=== PATIENT | male | born 1930 | race Two or more races ===

== ENCOUNTER 2017-04-27 17:52 | Inpatient (IN) | payer MEDICARE, MEDICAID ==
[~2017-04-27] VITALS: Ht 160 cm; Wt 54.0 kg
[2017-04-27 18:30] VITALS: BP 122/61
[2017-04-27] MEDS ORDERED: LEVETIRACETAM500 MG ORAL (19:25)
[2017-04-27] MEDS ORDERED: DIOVAN160 MG ORAL (19:25)
[2017-04-27 19:27] LABS: MEAN CORPUSCULAR HEMOGLOBIN 29.6 PG (27.0-31.0); MEAN CORPUSCULAR HGB CONC 31.5 G/DL (32.0-36.0); MEAN CORPUSCULAR VOLUME 94 FL (80-99); MEAN PLATELET VOLUME 8.3 FL (6.5-10.1); PLATELET COUNT 188 K/UL (150-450); RED BLOOD COUNT 4.44 M/UL (4.70-6.10); RED CELL DISTRIBUTION WIDTH 14.3 % (11.6-14.8)
--- NOTE | 2017-04-27 19:28 | Emergency Room Report ---
History of Present Illness General Chief Complaint: Seizure Source: Family Member Present Illness HPI 86yom with known seizures on keppra BIBEMS with witnessed tonic clonic seizure Given IM versed and cessation of seizure Was in chair, no trauma Last seizure one month prior HPI otherwise limited as patient post-ictal and accompanied health care worker is not very knowledgeable about patient Allergies: Coded Allergies: No Known Allergies (Unverified , 04/27/17) Patient History Past Medical History: HTN, seizures Past Surgical History: unable to obtain Pertinent Family History: unable to obtain Social History: Denies: smoking, alcohol use, drug use Immunizations: UTD Reviewed Nursing Documentation: PMH: Agreed, PSxH: Agreed Nursing Documentation-PMH Hx Hypertension: Yes Hx Diabetes: Yes Review of Systems All Other Systems: negative except mentioned in HPI Physical Exam Vital Signs Date Time Temp Pulse Resp B/P (MAP) Pulse Ox O2 Delivery O2 Flow Rate FiO2 04/27/17 17:58 99.1 120 16 128/54 98 Nasal Cannula 3.0 Sp02 EP Interpretation: reviewed, normal General Appearance: normal inspection, well appearing, no apparent distress, Postictal Head: normocephalic, atraumatic Eyes: bilateral eye PERRL, bilateral eye EOMI ENT: normal ENT inspection, hearing grossly normal, normal voice Neck: normal inspection, full range of motion, supple, no bony tend Respiratory: normal inspection, lungs clear, normal breath sounds, no respiratory distress, no retraction, no wheezing Cardiovascular #1: regular rate, rhythm, no edema Gastrointestinal: normal inspection, normal bowel sounds, non tender, soft, no guarding, no hernia Genitourinary: no CVA tenderness Musculoskeletal: normal inspection, back normal, normal range of motion, Cecil' s Sign negative Neurologic: normal inspection, alert, responsive, town justice III-XII nml as tested, motor strength/tone normal, speech normal Psychiatric: normal inspection, judgement/insight normal, mood/affect normal Skin: normal inspection, normal color, no rash Medical Decision Making Medicare Attestation I Abiodun Curtis MD hereby attest that the medical record entry for date of service, 04/27/17 accurately reflects signatures/notations that I made in my capacity as MD when I treated/diagnosed the above listed Medicare beneficiary. I attest that this information is true, accurate and complete to the best of my knowledge. I understand that any falsification, omission, or concealment of material fact may subject me to administrative, civil, or criminal liability. This patient warrants hospital admission for extreme of age and has a condition that cannot be treated as outpatient. Diagnostic Impression: Primary Impression: Seizure disorder ER Course CT head normal VSS. Afebrile ECG with qwaves Labs: Was loaded with Keppra IV in ED No additional witnessed seizures Endorsed to Dr Vang tele admit 728pm EKG Diagnostic Results Rate: tachycardiac Rhythm: NSR ST Segments: other - Q waves in inferior leads ASA given to the pt in ED: No Rhythm Strip Diag. Results EP Interpretation: yes Rate: 105 Rhythm: NSR, no PVC's, no ectopy Last Vital Signs Date Time Temp Pulse Resp B/P (MAP) Pulse Ox O2 Delivery O2 Flow Rate FiO2 04/27/17 17:58 99.1 120 16 128/54 98 Nasal Cannula 3.0 Status: improved Disposition: ADMITTED INPATIENT Condition: Serious Referrals: NOT CHOSEN IPA/,REFERRING (PCP) ABIODUN CURTIS M.D. Apr 27, 2017 19:28
[2017-04-27 19:36] LABS: TROPONIN I < 0.30 ng/mL (<=0.30)
[2017-04-27 19:38] VITALS: BP 132/74
[2017-04-27 19:43] LABS: ACETAMINOPHEN < 10 ug/mL (10-30); ALANINE AMINOTRANSFERASE 16 U/L (3-41); ALBUMIN/GLOBULIN RATIO 1.1 (1.0-2.7); ALCOHOL < 10 mg/dL; ANION GAP 20 (5-15); ASPARTATE AMINO TRANSFERASE 40 U/L (5-40); CALCIUM 9.4 mg/dL (8.6-10.2); CARBAMAZEPINE (TEGRETOL) < 2.0 ug/mL (4.0-12.0); CARBON DIOXIDE 20 mEQ/L (20-30); CHLORIDE 98 mEQ/L (98-107); CREATININE 2.1 mg/dL (0.7-1.2); HEMOLYSIS 5; POTASSIUM 3.9 mEQ/L (3.4-4.9); SODIUM 138 mEQ/L (135-145)
[2017-04-27] MEDS ORDERED: levETIRAcetam 1,000mg/NS100ml 100 ML IVPB ONE (20:00)
[2017-04-27 20:34] LABS: BAND NEUTROPHILS % (MANUAL) 1 % (0-8); LYMPHOCYTES % (MANUAL) 8 % (20-45); NEUTROPHILS % (MANUAL) 85 % (45-75); PLATELET MORPHOLOGY NORMAL; TOTAL CELLS COUNTED 100
[2017-04-27 20:35] LABS: BASOPHILS % (MANUAL) 0 % (0-2); EOSINOPHILS % (MANUAL) 0 % (0-3); PLATELET ESTIMATE ADEQUATE
[2017-04-27] MEDS ORDERED: Morphine Sulfate 2mg/ml Inj IVP PRN (21:15)
[2017-04-27] MEDS ORDERED: LORazepam Inj 2mg/ml 1ml IV PRN (21:15)
[2017-04-27] MEDS ORDERED: Miralax 17gm pkt ORAL PRN (21:15)
[2017-04-27] MEDS ORDERED: Zolpidem 5mg tab ORAL PRN (21:15)
[2017-04-27] MEDS ORDERED: Mylanta II UD 30ml ORAL PRN (21:15)
[2017-04-27] MEDS: LORazepam Inj 2mg/ml 1ml IV ONE ×2 (21:22→21:30)
[2017-04-27 22:00] VITALS: BP 138/78
[2017-04-28] MEDS ORDERED: Haloperidol 5mg/ml Inj IM PRN (00:45)
[2017-04-28 04:00] VITALS: BP 127/101
[2017-04-28 07:00] LABS: BASOPHILS % (AUTO) 0.9 % (0.0-2.0); EOSINOPHILS % (AUTO) 2.1 % (0.0-3.0); LYMPHOCYTES % (AUTO) 16.1 % (20.0-45.0); MEAN CORPUSCULAR HEMOGLOBIN 29.7 PG (27.0-31.0); MEAN CORPUSCULAR HGB CONC 31.4 G/DL (32.0-36.0); MEAN CORPUSCULAR VOLUME 95 FL (80-99); MEAN PLATELET VOLUME 8.9 FL (6.5-10.1); MONOCYTES % (AUTO) 8.6 % (1.0-10.0); NEUTROPHILS % (AUTO) 72.3 % (45.0-75.0); PLATELET COUNT 172 K/UL (150-450); RED BLOOD COUNT 3.95 M/UL (4.70-6.10); RED CELL DISTRIBUTION WIDTH 14.3 % (11.6-14.8); WHITE BLOOD COUNT 9.4 K/UL (4.8-10.8)
[2017-04-28 07:14] LABS: ALANINE AMINOTRANSFERASE 15 U/L (3-41); ALBUMIN/GLOBULIN RATIO 1.2 (1.0-2.7); ANION GAP 12 (5-15); ASPARTATE AMINO TRANSFERASE 38 U/L (5-40); CALCIUM 9.1 mg/dL (8.6-10.2); CARBON DIOXIDE 27 mEQ/L (20-30); CHLORIDE 101 mEQ/L (98-107); CREATININE 1.9 mg/dL (0.7-1.2); HEMOLYSIS 4; POTASSIUM 3.7 mEQ/L (3.4-4.9); SODIUM 140 mEQ/L (135-145); TOTAL PROTEIN 6.5 g/dL (6.6-8.7)
[2017-04-28 08:00] VITALS: BP 110/57
[2017-04-28] MEDS: Heparin 5000 units/ml inj SUBQ SCH ×2 (09:35→21:16)
--- NOTE | 2017-04-28 09:48 | Diagnostic Imaging Report ---
Indication: Seizure and headache Technique: Contiguous 5 mm thick transaxial imaging of the head obtained in a Siemens Sensation [address] scanner. Soft tissue and bone windows generated. Total Dose length Product (DLP): [address] Dose Index Volume (CTDIvol): 70.38, 0.15 mGy Comparison: none Findings: There is moderate prominence of the ventricles, basal cisterns, and cerebral sulci consistent with atrophy. Moderate, nonspecific, white matter hypoattenuation is noted throughout the brain consistent with chronic small vessel disease. There is no midline shift, edema, acute hemorrhage, mass effect, or abnormal extra-axial fluid collections. Bones and extra osseous soft tissues are unremarkable. Impression: No acute intracranial bleed, mass effect or edema. Moderate atrophy of the brain. Evidence of chronic small vessel disease involving white matter tracts. The CT scanner at [facility] is accredited by the [employer] and the scans are performed using dose optimization techniques as appropriate to a performed exam including Automatic Exposure control.
[2017-04-28 12:00] VITALS: BP 117/52
--- NOTE | 2017-04-28 12:14 | Consultation ---
History of Present Illness General Chief Complaint: Seizure Present Illness HPI 86yom with known seizures on keppra BIBEMS with witnessed tonic clonic seizure. The pts family were in room.the pt has a sitter. the pt was aaox3, however he has cognitive impairment. the pt was agitated yesterday during my evaluation he was calm. His daughter in law is his care team assistant. the pt lacks capacity to leave ama. the pts son stated that he has desire to drive and they have to hide keys from him. spoke to his nurse, the pt may not drive in future. Allergies: Coded Allergies: No Known Allergies (Unverified , 04/27/17) Medication History Scheduled Valsartan (Diovan), 320 MG ORAL DAILY, (Reported) Miscellaneous Medications Levetiracetam* (Levetiracetam*), 250 MG ORAL, (Reported) Patient History Limited by: language barrier, medical condition History Provided By: Patient, Family Member, Medical Record, Caregiver, PMD Healthcare decision maker Konstantin Gray Resuscitation status Full Code Advanced Directive on File No Past Medical/Surgical History Past Medical/Surgical History: (1) Seizure disorder Review of Systems Constitutional: Reports: malaise, weakness Psychiatric: Reports: prior hx, anxiety, depressed feelings, emotional problems Physical Exam General Appearance: no apparent distress, alert Neurologic: alert, oriented x 3, responsive, normal mood/affect Last 24 Hour Vital Signs Date Time Temp Pulse Resp B/P (MAP) Pulse Ox O2 Delivery O2 Flow Rate FiO2 04/28/17 09:00 63 04/28/17 08:00 97.7 69 17 110/57 100 Room Air 04/28/17 04:00 97.7 93 23 127/101 91 Room Air 04/28/17 04:00 68 04/28/17 00:00 92 04/27/17 22:15 99.1 112 16 132/74 98 Room Air 3.0 04/27/17 22:00 99.1 102 22 138/78 96 Room Air 04/27/17 19:39 112 16 Room Air 04/27/17 19:38 99.1 112 22 132/74 98 Nasal Cannula 3.0 04/27/17 18:34 78 25 04/27/17 18:30 98.8 78 25 122/61 94 Room Air 04/27/17 17:58 99.1 120 16 128/54 98 Nasal Cannula 3.0 Laboratory Tests Test 04/27/17 18:49 04/28/17 06:10 White Blood Count 13.0 K/UL (4.8-10.8) H 9.4 K/UL (4.8-10.8) Red Blood Count 4.44 M/UL (4.70-6.10) L 3.95 M/UL (4.70-6.10) L Hemoglobin 13.1 G/DL (14.2-18.0) L 11.7 G/DL (14.2-18.0) L Hematocrit 41.7 % (42.0-52.0) L 37.4 % (42.0-52.0) L Mean Corpuscular Volume 94 FL (80-99) 95 FL (80-99) Mean Corpuscular Hemoglobin 29.6 PG (27.0-31.0) 29.7 PG (27.0-31.0) Mean Corpuscular Hemoglobin Concent 31.5 G/DL (32.0-36.0) L 31.4 G/DL (32.0-36.0) L Red Cell Distribution Width 14.3 % (11.6-14.8) 14.3 % (11.6-14.8) Platelet Count 188 K/UL (150-450) 172 K/UL (150-450) Mean Platelet Volume 8.3 FL (6.5-10.1) 8.9 FL (6.5-10.1) Neutrophils (%) (Auto) % (45.0-75.0) 72.3 % (45.0-75.0) Lymphocytes (%) (Auto) % (20.0-45.0) 16.1 % (20.0-45.0) L Monocytes (%) (Auto) % (1.0-10.0) 8.6 % (1.0-10.0) Eosinophils (%) (Auto) % (0.0-3.0) 2.1 % (0.0-3.0) Basophils (%) (Auto) % (0.0-2.0) 0.9 % (0.0-2.0) Differential Total Cells Counted 100 Neutrophils % (Manual) 85 % (45-75) H Lymphocytes % (Manual) 8 % (20-45) L Monocytes % (Manual) 6 % (1-10) Eosinophils % (Manual) 0 % (0-3) Basophils % (Manual) 0 % (0-2) Band Neutrophils 1 % (0-8) Platelet Estimate Adequate Platelet Morphology Normal Red Blood Cell Morphology Normal Sodium Level 138 mEQ/L (135-145) 140 mEQ/L (135-145) Potassium Level 3.9 mEQ/L (3.4-4.9) 3.7 mEQ/L (3.4-4.9) Chloride Level 98 mEQ/L (98-107) 101 mEQ/L (98-107) Carbon Dioxide Level 20 mEQ/L (20-30) 27 mEQ/L (20-30) Anion Gap 20 (5-15) H 12 (5-15) Blood Urea Nitrogen 21 mg/dL (7-23) 19 mg/dL (7-23) Creatinine 2.1 mg/dL (0.7-1.2) H 1.9 mg/dL (0.7-1.2) H Estimat Glomerular Filtration Rate mL/min (>60) mL/min (>60) Glucose Level 145 mg/dL (74-106) H 98 mg/dL (74-106) Calcium Level 9.4 mg/dL (8.6-10.2) 9.1 mg/dL (8.6-10.2) Total Bilirubin 0.3 mg/dL (0.0-1.2) 0.6 mg/dL (0.0-1.2) Aspartate Amino Transf (AST/SGOT) 40 U/L (5-40) 38 U/L (5-40) Alanine Aminotransferase (ALT/SGPT) 16 U/L (3-41) 15 U/L (3-41) Alkaline Phosphatase 141 U/L (40-129) H 122 U/L (40-129) Total Creatine Kinase 40 U/L (38-174) Creatine Kinase MB 2.0 ng/mL (< 6.7) Creatine Kinase MB Relative Index 5.0 Troponin I < 0.30 ng/mL (<=0.30) Total Protein 7.0 g/dL (6.6-8.7) 6.5 g/dL (6.6-8.7) L Albumin 3.8 g/dL (3.5-5.2) 3.6 g/dL (3.5-5.2) Globulin 3.2 g/dL 2.9 g/dL Albumin/Globulin Ratio 1.1 (1.0-2.7) 1.2 (1.0-2.7) Salicylates Level < 1 mg/dL (10-30) L Acetaminophen Level < 10 ug/mL (10-30) L Phenytoin (Dilantin) Level < 0.8 ug/mL (10-20) L Carbamazepine (Tegretol) Level < 2.0 ug/mL (4.0-12.0) L Serum Alcohol < 10 mg/dL Height (Feet): 5 Height (Inches): 3.00 Weight (Pounds): 119 Medications Current Medications Medications (Trade) Dose Ordered Sig/Fransisco Route PRN Reason Start Time Stop Time Status Last Admin Dose Admin Acetaminophen (Tylenol) 650 mg Q4H PRN ORAL T>100.5 04/27/17 21:15 05/27/17 21:14 Al Hydroxide/Mg Hydroxide (Mylanta II) 30 ml Q6H PRN ORAL dyspepsia 04/27/17 21:15 05/27/17 21:14 Dextrose (Dextrose 50%) STAT PRN IV Hypoglycemia 04/27/17 21:15 05/27/17 21:14 Haloperidol Lactate (Haldol) 2 mg Q4H PRN IM Agitation 04/28/17 00:45 05/28/17 00:44 04/28/17 03:51 Heparin Sodium (Porcine) (Heparin 5000 units/ml) 5,000 units EVERY 12 HOURS SUBQ 04/28/17 09:00 05/28/17 08:59 04/28/17 09:35 Levetiracetam (Keppra) 250 mg Q12HR ORAL 04/28/17 09:00 05/28/17 08:59 04/28/17 09:32 Lorazepam (Ativan 2mg/ml 1ml) 2 mg Q1H PRN IV seizures 04/27/17 21:15 05/04/17 21:14 Morphine Sulfate (Morphine Sulfate) 1 mg Q4H PRN IVP PAIN 4-10 04/27/17 21:15 05/04/17 21:14 Ondansetron HCl (Zofran) 4 mg Q6H PRN IVP Nausea & Vomiting 04/27/17 21:15 05/27/17 21:14 Polyethylene Glycol (Miralax) 17 gm HSPRN PRN ORAL Constipation 04/27/17 21:15 05/27/17 21:14 Zolpidem Tartrate (Ambien) 5 mg HSPRN PRN ORAL Insomnia 04/27/17 21:15 05/04/17 21:14 Assessment/Plan Status: stable Assessment/Plan Cognitive impairment -pt may not drive, nurse to contact Gail Muse M.D. Apr 28, 2017 12:14
--- NOTE | 2017-04-28 15:25 | History and Physical ---
History of Present Illness General Date patient seen: Apr 27, 2017 Reason for Hospitalization: Seizure Present Illness HPI 86yom with pmhx of known seizures on keppra and HTN, brought in by paramedics with witnessed tonic clonic seizure. Paramedics gave IM versed and cessation of seizure He had another seizure one month ago. patient was post-ictal in Er and couldn 't give any more history. Allergies: Coded Allergies: No Known Allergies (Unverified , 04/27/17) Medication History Scheduled Valsartan (Diovan), 320 MG ORAL DAILY, (Reported) Miscellaneous Medications Levetiracetam* (Levetiracetam*), 250 MG ORAL, (Reported) Patient History Healthcare decision maker Konstantin Gray Resuscitation status Full Code Advanced Directive on File No Past Medical/Surgical History Past Medical/Surgical History: (1) Hypertension (2) Uncontrolled seizures Review of Systems All Other Systems: negative except mentioned in HPI Physical Exam General Appearance: WD/WN, no apparent distress Lines, tubes and drains: peripheral HEENT: normocephalic, atraumatic Neck: non-tender, normal alignment Respiratory/Chest: chest wall non-tender, lungs clear Breasts: no masses Cardiovascular/Chest: normal peripheral pulses Abdomen: normal bowel sounds Genitourinary/Rectal: normal genital exam Extremities: normal range of motion, non-tender Skin Exam: cyanotic Neurologic: no motor/sensory deficits Lymphatic: anterior cervical Last 24 Hour Vital Signs Date Time Temp Pulse Resp B/P (MAP) Pulse Ox O2 Delivery O2 Flow Rate FiO2 04/28/17 12:00 97.2 76 18 117/52 97 Room Air 04/28/17 12:00 76 04/28/17 09:00 63 04/28/17 08:00 97.7 69 17 110/57 100 Room Air 04/28/17 04:00 97.7 93 23 127/101 91 Room Air 04/28/17 04:00 68 04/28/17 00:00 92 04/27/17 22:15 99.1 112 16 132/74 98 Room Air 3.0 04/27/17 22:00 99.1 102 22 138/78 96 Room Air 04/27/17 19:39 112 16 Room Air 04/27/17 19:38 99.1 112 22 132/74 98 Nasal Cannula 3.0 04/27/17 18:34 78 25 04/27/17 18:30 98.8 78 25 122/61 94 Room Air 04/27/17 17:58 99.1 120 16 128/54 98 Nasal Cannula 3.0 Laboratory Tests Test 04/27/17 18:49 04/28/17 06:10 White Blood Count 13.0 K/UL (4.8-10.8) H 9.4 K/UL (4.8-10.8) Red Blood Count 4.44 M/UL (4.70-6.10) L 3.95 M/UL (4.70-6.10) L Hemoglobin 13.1 G/DL (14.2-18.0) L 11.7 G/DL (14.2-18.0) L Hematocrit 41.7 % (42.0-52.0) L 37.4 % (42.0-52.0) L Mean Corpuscular Volume 94 FL (80-99) 95 FL (80-99) Mean Corpuscular Hemoglobin 29.6 PG (27.0-31.0) 29.7 PG (27.0-31.0) Mean Corpuscular Hemoglobin Concent 31.5 G/DL (32.0-36.0) L 31.4 G/DL (32.0-36.0) L Red Cell Distribution Width 14.3 % (11.6-14.8) 14.3 % (11.6-14.8) Platelet Count 188 K/UL (150-450) 172 K/UL (150-450) Mean Platelet Volume 8.3 FL (6.5-10.1) 8.9 FL (6.5-10.1) Neutrophils (%) (Auto) % (45.0-75.0) 72.3 % (45.0-75.0) Lymphocytes (%) (Auto) % (20.0-45.0) 16.1 % (20.0-45.0) L Monocytes (%) (Auto) % (1.0-10.0) 8.6 % (1.0-10.0) Eosinophils (%) (Auto) % (0.0-3.0) 2.1 % (0.0-3.0) Basophils (%) (Auto) % (0.0-2.0) 0.9 % (0.0-2.0) Differential Total Cells Counted 100 Neutrophils % (Manual) 85 % (45-75) H Lymphocytes % (Manual) 8 % (20-45) L Monocytes % (Manual) 6 % (1-10) Eosinophils % (Manual) 0 % (0-3) Basophils % (Manual) 0 % (0-2) Band Neutrophils 1 % (0-8) Platelet Estimate Adequate Platelet Morphology Normal Red Blood Cell Morphology Normal Sodium Level 138 mEQ/L (135-145) 140 mEQ/L (135-145) Potassium Level 3.9 mEQ/L (3.4-4.9) 3.7 mEQ/L (3.4-4.9) Chloride Level 98 mEQ/L (98-107) 101 mEQ/L (98-107) Carbon Dioxide Level 20 mEQ/L (20-30) 27 mEQ/L (20-30) Anion Gap 20 (5-15) H 12 (5-15) Blood Urea Nitrogen 21 mg/dL (7-23) 19 mg/dL (7-23) Creatinine 2.1 mg/dL (0.7-1.2) H 1.9 mg/dL (0.7-1.2) H Estimat Glomerular Filtration Rate mL/min (>60) mL/min (>60) Glucose Level 145 mg/dL (74-106) H 98 mg/dL (74-106) Calcium Level 9.4 mg/dL (8.6-10.2) 9.1 mg/dL (8.6-10.2) Total Bilirubin 0.3 mg/dL (0.0-1.2) 0.6 mg/dL (0.0-1.2) Aspartate Amino Transf (AST/SGOT) 40 U/L (5-40) 38 U/L (5-40) Alanine Aminotransferase (ALT/SGPT) 16 U/L (3-41) 15 U/L (3-41) Alkaline Phosphatase 141 U/L (40-129) H 122 U/L (40-129) Total Creatine Kinase 40 U/L (38-174) Creatine Kinase MB 2.0 ng/mL (< 6.7) Creatine Kinase MB Relative Index 5.0 Troponin I < 0.30 ng/mL (<=0.30) Total Protein 7.0 g/dL (6.6-8.7) 6.5 g/dL (6.6-8.7) L Albumin 3.8 g/dL (3.5-5.2) 3.6 g/dL (3.5-5.2) Globulin 3.2 g/dL 2.9 g/dL Albumin/Globulin Ratio 1.1 (1.0-2.7) 1.2 (1.0-2.7) Salicylates Level < 1 mg/dL (10-30) L Acetaminophen Level < 10 ug/mL (10-30) L Phenytoin (Dilantin) Level < 0.8 ug/mL (10-20) L Carbamazepine (Tegretol) Level < 2.0 ug/mL (4.0-12.0) L Serum Alcohol < 10 mg/dL Height (Feet): 5 Height (Inches): 3.00 Weight (Pounds): 119 Medications Current Medications Medications (Trade) Dose Ordered Sig/Fransisco Route PRN Reason Start Time Stop Time Status Last Admin Dose Admin Acetaminophen (Tylenol) 650 mg Q4H PRN ORAL T>100.5 04/27/17 21:15 05/27/17 21:14 Al Hydroxide/Mg Hydroxide (Mylanta II) 30 ml Q6H PRN ORAL dyspepsia 04/27/17 21:15 05/27/17 21:14 Dextrose (Dextrose 50%) STAT PRN IV Hypoglycemia 04/27/17 21:15 05/27/17 21:14 Haloperidol Lactate (Haldol) 2 mg Q4H PRN IM Agitation 04/28/17 00:45 05/28/17 00:44 04/28/17 03:51 Heparin Sodium (Porcine) (Heparin 5000 units/ml) 5,000 units EVERY 12 HOURS SUBQ 04/28/17 09:00 05/28/17 08:59 04/28/17 09:35 Levetiracetam (Keppra) 250 mg Q12HR ORAL 04/28/17 09:00 05/28/17 08:59 04/28/17 09:32 Lorazepam (Ativan 2mg/ml 1ml) 2 mg Q1H PRN IV seizures 04/27/17 21:15 05/04/17 21:14 Morphine Sulfate (Morphine Sulfate) 1 mg Q4H PRN IVP PAIN 4-10 04/27/17 21:15 05/04/17 21:14 Ondansetron HCl (Zofran) 4 mg Q6H PRN IVP Nausea & Vomiting 04/27/17 21:15 05/27/17 21:14 Polyethylene Glycol (Miralax) 17 gm HSPRN PRN ORAL Constipation 04/27/17 21:15 05/27/17 21:14 Zolpidem Tartrate (Ambien) 5 mg HSPRN PRN ORAL Insomnia 04/27/17 21:15 05/04/17 21:14 Assessment/Plan Problem List: (1) Uncontrolled seizures ICD Codes: R56.9 - Unspecified convulsions SNOMED: 62207329 (2) Hypertension ICD Codes: I10 - Essential (primary) hypertension SNOMED: 59738410 Assessment/Plan telemetry monitoring neuro evaluation prn ativan for seizure seizure precaution monitor BP ALEC MICHAEL Apr 28, 2017 15:25
--- NOTE | 2017-04-28 15:32 | Pulmonology Progress Note ---
Assessment/Plan Problems: (1) Acute encephalopathy (2) Uncontrolled seizures (3) ATN (acute tubular necrosis) (4) Hypertension Assessment/Plan mental status improved bp controlled f/u renal function neuro evaluation pending Subjective ROS Limited/Unobtainable: No Constitutional: Reports: no symptoms HEENT: Repors: no symptoms Respiratory: Reports: no symptoms Allergies: Coded Allergies: No Known Allergies (Unverified , 04/27/17) Objective Last 24 Hour Vital Signs Date Time Temp Pulse Resp B/P (MAP) Pulse Ox O2 Delivery O2 Flow Rate FiO2 04/28/17 12:00 97.2 76 18 117/52 97 Room Air 04/28/17 12:00 76 04/28/17 09:00 63 04/28/17 08:00 97.7 69 17 110/57 100 Room Air 04/28/17 04:00 97.7 93 23 127/101 91 Room Air 04/28/17 04:00 68 04/28/17 00:00 92 04/27/17 22:15 99.1 112 16 132/74 98 Room Air 3.0 04/27/17 22:00 99.1 102 22 138/78 96 Room Air 04/27/17 19:39 112 16 Room Air 04/27/17 19:38 99.1 112 22 132/74 98 Nasal Cannula 3.0 04/27/17 18:34 78 25 04/27/17 18:30 98.8 78 25 122/61 94 Room Air 04/27/17 17:58 99.1 120 16 128/54 98 Nasal Cannula 3.0 General Appearance: WD/WN HEENT: normocephalic, atraumatic Respiratory/Chest: chest wall non-tender Cardiovascular: normal peripheral pulses, normal rate Abdomen: normal bowel sounds, soft, non tender Skin: no rash Laboratory Tests 04/27/17 18:49: White Blood Count 13.0H, Red Blood Count 4.44L, Hemoglobin 13.1L, Hematocrit 41.7L, Mean Corpuscular Volume 94, Mean Corpuscular Hemoglobin 29.6, Mean Corpuscular Hemoglobin Concent 31.5L, Red Cell Distribution Width 14.3, Platelet Count 188, Mean Platelet Volume 8.3, Neutrophils (%) (Auto) , Lymphocytes (%) (Auto) , Monocytes (%) (Auto) , Eosinophils (%) (Auto) , Basophils (%) (Auto) , Differential Total Cells Counted 100, Neutrophils % ( Manual) 85H, Lymphocytes % (Manual) 8L, Monocytes % (Manual) 6, Eosinophils % ( Manual) 0, Basophils % (Manual) 0, Band Neutrophils 1, Platelet Estimate Adequate, Platelet Morphology Normal, Red Blood Cell Morphology Normal, Sodium Level 138, Potassium Level 3.9, Chloride Level 98, Carbon Dioxide Level 20, Anion Gap 20H, Blood Urea Nitrogen 21, Creatinine 2.1H, Estimat Glomerular Filtration Rate , Glucose Level 145H, Calcium Level 9.4, Total Bilirubin 0.3, Aspartate Amino Transf (AST/SGOT) 40, Alanine Aminotransferase (ALT/SGPT) 16, Alkaline Phosphatase 141H, Total Creatine Kinase 40, Creatine Kinase MB 2.0, Creatine Kinase MB Relative Index 5.0, Troponin I < 0.30, Total Protein 7.0, Albumin 3.8, Globulin 3.2, Albumin/Globulin Ratio 1.1, Salicylates Level < 1L, Acetaminophen Level < 10L, Phenytoin (Dilantin) Level < 0.8L, Carbamazepine ( Tegretol) Level < 2.0L, Serum Alcohol < 10 04/28/17 06:10: White Blood Count 9.4, Red Blood Count 3.95L, Hemoglobin 11.7L, Hematocrit 37.4L , Mean Corpuscular Volume 95, Mean Corpuscular Hemoglobin 29.7, Mean Corpuscular Hemoglobin Concent 31.4L, Red Cell Distribution Width 14.3, Platelet Count 172, Mean Platelet Volume 8.9, Neutrophils (%) (Auto) 72.3, Lymphocytes (%) (Auto) 16.1L, Monocytes (%) (Auto) 8.6, Eosinophils (%) (Auto) 2.1, Basophils (%) (Auto) 0.9, Sodium Level 140, Potassium Level 3.7, Chloride Level 101, Carbon Dioxide Level 27, Anion Gap 12, Blood Urea Nitrogen 19, Creatinine 1.9H, Estimat Glomerular Filtration Rate , Glucose Level 98, Calcium Level 9.1, Total Bilirubin 0.6, Aspartate Amino Transf (AST/SGOT) 38, Alanine Aminotransferase (ALT/SGPT) 15, Alkaline Phosphatase 122, Total Protein 6.5L, Albumin 3.6, Globulin 2.9, Albumin/Globulin Ratio 1.2 Current Medications Medications (Trade) Dose Ordered Sig/Fransisco Route PRN Reason Start Time Stop Time Status Last Admin Dose Admin Acetaminophen (Tylenol) 650 mg Q4H PRN ORAL T>100.5 04/27/17 21:15 05/27/17 21:14 Al Hydroxide/Mg Hydroxide (Mylanta II) 30 ml Q6H PRN ORAL dyspepsia 04/27/17 21:15 05/27/17 21:14 Dextrose (Dextrose 50%) STAT PRN IV Hypoglycemia 04/27/17 21:15 05/27/17 21:14 Haloperidol Lactate (Haldol) 2 mg Q4H PRN IM Agitation 04/28/17 00:45 05/28/17 00:44 04/28/17 03:51 Heparin Sodium (Porcine) (Heparin 5000 units/ml) 5,000 units EVERY 12 HOURS SUBQ 04/28/17 09:00 05/28/17 08:59 04/28/17 09:35 Levetiracetam (Keppra) 250 mg Q12HR ORAL 04/28/17 09:00 05/28/17 08:59 04/28/17 09:32 Lorazepam (Ativan 2mg/ml 1ml) 2 mg Q1H PRN IV seizures 04/27/17 21:15 05/04/17 21:14 Morphine Sulfate (Morphine Sulfate) 1 mg Q4H PRN IVP PAIN 4-10 04/27/17 21:15 05/04/17 21:14 Ondansetron HCl (Zofran) 4 mg Q6H PRN IVP Nausea & Vomiting 04/27/17 21:15 05/27/17 21:14 Polyethylene Glycol (Miralax) 17 gm HSPRN PRN ORAL Constipation 04/27/17 21:15 05/27/17 21:14 Zolpidem Tartrate (Ambien) 5 mg HSPRN PRN ORAL Insomnia 04/27/17 21:15 05/04/17 21:14 ALEC MICHAEL Apr 28, 2017 15:32
[2017-04-28 16:00] VITALS: BP 113/56
--- NOTE | 2017-04-28 17:30 | Neurology Progress Note ---
Interim History Interim History ROS Limited/Unobtainable: No Objective Physical Exam Last Vital Signs Date Time Temp Pulse Resp B/P (MAP) Pulse Ox O2 Delivery O2 Flow Rate FiO2 04/28/17 16:00 97.9 69 20 113/56 98 Room Air 04/27/17 22:15 3.0 Laboratory Tests Test 04/27/17 18:49 04/28/17 06:10 White Blood Count 13.0 K/UL (4.8-10.8) H 9.4 K/UL (4.8-10.8) Red Blood Count 4.44 M/UL (4.70-6.10) L 3.95 M/UL (4.70-6.10) L Hemoglobin 13.1 G/DL (14.2-18.0) L 11.7 G/DL (14.2-18.0) L Hematocrit 41.7 % (42.0-52.0) L 37.4 % (42.0-52.0) L Mean Corpuscular Volume 94 FL (80-99) 95 FL (80-99) Mean Corpuscular Hemoglobin 29.6 PG (27.0-31.0) 29.7 PG (27.0-31.0) Mean Corpuscular Hemoglobin Concent 31.5 G/DL (32.0-36.0) L 31.4 G/DL (32.0-36.0) L Red Cell Distribution Width 14.3 % (11.6-14.8) 14.3 % (11.6-14.8) Platelet Count 188 K/UL (150-450) 172 K/UL (150-450) Mean Platelet Volume 8.3 FL (6.5-10.1) 8.9 FL (6.5-10.1) Neutrophils (%) (Auto) % (45.0-75.0) 72.3 % (45.0-75.0) Lymphocytes (%) (Auto) % (20.0-45.0) 16.1 % (20.0-45.0) L Monocytes (%) (Auto) % (1.0-10.0) 8.6 % (1.0-10.0) Eosinophils (%) (Auto) % (0.0-3.0) 2.1 % (0.0-3.0) Basophils (%) (Auto) % (0.0-2.0) 0.9 % (0.0-2.0) Differential Total Cells Counted 100 Neutrophils % (Manual) 85 % (45-75) H Lymphocytes % (Manual) 8 % (20-45) L Monocytes % (Manual) 6 % (1-10) Eosinophils % (Manual) 0 % (0-3) Basophils % (Manual) 0 % (0-2) Band Neutrophils 1 % (0-8) Platelet Estimate Adequate Platelet Morphology Normal Red Blood Cell Morphology Normal Sodium Level 138 mEQ/L (135-145) 140 mEQ/L (135-145) Potassium Level 3.9 mEQ/L (3.4-4.9) 3.7 mEQ/L (3.4-4.9) Chloride Level 98 mEQ/L (98-107) 101 mEQ/L (98-107) Carbon Dioxide Level 20 mEQ/L (20-30) 27 mEQ/L (20-30) Anion Gap 20 (5-15) H 12 (5-15) Blood Urea Nitrogen 21 mg/dL (7-23) 19 mg/dL (7-23) Creatinine 2.1 mg/dL (0.7-1.2) H 1.9 mg/dL (0.7-1.2) H Estimat Glomerular Filtration Rate mL/min (>60) mL/min (>60) Glucose Level 145 mg/dL (74-106) H 98 mg/dL (74-106) Calcium Level 9.4 mg/dL (8.6-10.2) 9.1 mg/dL (8.6-10.2) Total Bilirubin 0.3 mg/dL (0.0-1.2) 0.6 mg/dL (0.0-1.2) Aspartate Amino Transf (AST/SGOT) 40 U/L (5-40) 38 U/L (5-40) Alanine Aminotransferase (ALT/SGPT) 16 U/L (3-41) 15 U/L (3-41) Alkaline Phosphatase 141 U/L (40-129) H 122 U/L (40-129) Total Creatine Kinase 40 U/L (38-174) Creatine Kinase MB 2.0 ng/mL (< 6.7) Creatine Kinase MB Relative Index 5.0 Troponin I < 0.30 ng/mL (<=0.30) Total Protein 7.0 g/dL (6.6-8.7) 6.5 g/dL (6.6-8.7) L Albumin 3.8 g/dL (3.5-5.2) 3.6 g/dL (3.5-5.2) Globulin 3.2 g/dL 2.9 g/dL Albumin/Globulin Ratio 1.1 (1.0-2.7) 1.2 (1.0-2.7) Salicylates Level < 1 mg/dL (10-30) L Acetaminophen Level < 10 ug/mL (10-30) L Phenytoin (Dilantin) Level < 0.8 ug/mL (10-20) L Carbamazepine (Tegretol) Level < 2.0 ug/mL (4.0-12.0) L Serum Alcohol < 10 mg/dL Impression/Recommendations Problems: (1) Seizure disorder (2) Hypertension (3) ATN (acute tubular necrosis) Status: stable Recommendations $ [id number] KIANNA LEVY Apr 28, 2017 17:30
[2017-04-28] MEDS ORDERED: Depakote 500mg tab ORAL SCH (18:00)
[2017-04-28 20:00] VITALS: BP 104/52
[2017-04-28 21:50] VITALS: BP 117/72
[2017-04-28] MEDS ORDERED: Zolpidem 5mg tab ORAL PRN (22:10)
[2017-04-28] MEDS ORDERED: LORazepam Inj 2mg/ml 1ml IV PRN (22:15)
[2017-04-29] VITALS (7 sets, daily range): BP systolic 112–146; BP diastolic 46–68
[2017-04-29 00:20] LABS: APPEARANCE,URINE CLEAR; KETONES,URINE NEGATIVE (NEGATIVE); LEUKOCYTE ESTERASE ,URINE NEGATIVE (NEGATIVE); NITRITE,URINE NEGATIVE (NEGATIVE); PH,URINE 6 (4.5-8.0); UROBILINOGEN,URINE NORMAL MG/DL (0.0-1.0)
[2017-04-29 00:27] LABS: PROTEIN,URINE NEGATIVE (NEGATIVE)
[2017-04-29 00:28] LABS: RBC,URINE 0 /HPF (0 - 0); WBC,URINE 0 /HPF (0 - 0)
[2017-04-29] MEDS ORDERED: Haloperidol 5mg/ml Inj IM PRN (00:45)
[2017-04-29] MEDS ORDERED: Morphine Sulfate 2mg/ml Inj IVP PRN (01:15)
--- NOTE | 2017-04-29 01:45 | Consultation ---
DATE OF CONSULTATION: 04/28/2017 NEUROLOGICAL CONSULTATION REQUESTING PHYSICIAN: Deangelo Vang M.D. History of present illness: The patient is an 86-year-old gentleman seen in neurological consultation to evaluate the exacerbation of chronic seizure disorder. According to the family, the patient developed generalized clonic-tonic seizure about three years ago, had a few of them but the last one approximately end of 2015, he was brought to this facility after developing witnessed generalized clonic-tonic seizure. Just prior to seizure, he was able to tell his family that he feels that he can have a seizure, the patient was in chair when he developed generalized clonic-tonic event, following which he started to wake up and was confused and disoriented. He was brought to the emergency room, temperature 99.1. Blood pressure 128/54. Initial diagnostic studies included CBC with mild anemia, hemoglobin 13.1, hematocrit 41.7, elevated WBC 13.0. Chemistry panel with creatinine 2.1. Anion gap of 20 and alkaline phosphatase is 131, toxicology panel revealed phenytoin level 0.8, carbamazepine 2.0. The patient was loaded with 500 mg of Keppra IV. No additional seizures were noted. EKG normal sinus rhythm, no PVCs. CAT scan of the brain was obtained, this revealed moderate prominence of ventricles in basal cisterns consistent with atrophy, there is moderate white matter hypoattenuation consistent with chronic small vessel disease, no intracranial abnormalities, no acute stroke or hemorrhage noted. Since admission, he was maintained on Keppra 250 mg b.i.d., p.r.n. Ativan for seizure breakthrough, zolpidem, and Tylenol. The patient's son was at bedside and was able to provide with some information indicating that the patient initially was placed on Keppra 500 mg twice a day, but developed side effects form of being unstable, he was quite uncomfortable with the use of high doses and his neurologist had to reduce his dose down to 250 mg a few months ago. Past Medical History: History of chronic seizure disorder, history of hypertension, treatment with valsartan and Keppra. He has no other major medical problems. ALLERGIES: No allergies. FAMILY HISTORY: Noncontributory. Review Of Symptoms: The patient indicated currently he is feeling well. Denies headache or dizziness. No chest pain or palpitations. Denies respiratory problems. Denies abdominal pain or discomfort. No urine or bowel incontinence. He has some arthritis. PHYSICAL EXAMINATION: General: A well-developed and well-nourished, elderly man, not in acute distress, lying comfortably in bed. VITAL SIGNS: Stable. Blood pressure 113/58. HEENT: Head normocephalic. There is no evidence of trauma. Eyes, ears, and throat are clear. NECK: Supple. No meningeal signs. EXTREMITIES: Pulses 1+ symmetric. Mental status: The patient is alert and oriented to his name and age. He is somewhat slow in responses, forgetful but coherent. Cranial nerves II: Pupils both responding to light and accommodation. Extraocular movement intact. No nystagmus. CRANIAL NERVES V: Normal corneal responses. CRANIAL NERVES VII: No facial asymmetry. CRANIAL NERVES VIII: Slight decrease in hearing. Cranial nerves IX through XII: Tongue is in midline. Symmetric palate elevation. Motor examination: Normal muscle tone and strength 5/5 in all extremities. No involuntary movement. Deep tendon reflexes 1+ symmetric with downgoing toes on both sides. Sensory exam normal to pinprick and light touch. Gait not tested but reported being able to ambulate without assistance. IMPRESSION: 1. Chronic generalized seizure disorder exacerbation due to subtherapeutic anticonvulsants. 2. Hypertension. 3. Ischemic cerebrovascular disease. DISCUSSION: 1. The patient has a poor tolerance of higher doses of Keppra, subsequently developing a breakthrough seizure episode while on 250 mg b.i.d. 2. Current laboratory studies revealed no evidence of liver function abnormalities but some signs of chronic renal insufficiency. 3. We will start the patient on a new anticonvulsant Depakote starting 250 mg b.i.d. which should be titrated as necessary, monitoring blood level and liver function. The patient maintained on Keppra 200 mg b.i.d. 4. Obtain electroencephalogram to identify epileptogenic focus. The patient to be observed for paroxysmal events following 24 hours. Thank you for allowing me to see this interesting patient in neurological consultation. Juan Pablo Menon M.D. DR: Thalia JOB#: [id number] CC:
[2017-04-29] MEDS ORDERED: Mylanta II UD 30ml ORAL PRN (03:15)
[2017-04-29 06:27] LABS: BASOPHILS % (AUTO) 1.3 % (0.0-2.0); EOSINOPHILS % (AUTO) 4.2 % (0.0-3.0); LYMPHOCYTES % (AUTO) 19.6 % (20.0-45.0); MEAN CORPUSCULAR HEMOGLOBIN 29.8 PG (27.0-31.0); MEAN CORPUSCULAR HGB CONC 31.4 G/DL (32.0-36.0); MEAN CORPUSCULAR VOLUME 95 FL (80-99); MONOCYTES % (AUTO) 8.4 % (1.0-10.0); NEUTROPHILS % (AUTO) 66.5 % (45.0-75.0); PLATELET COUNT 174 K/UL (150-450); RED BLOOD COUNT 3.93 M/UL (4.70-6.10); RED CELL DISTRIBUTION WIDTH 14.6 % (11.6-14.8); WHITE BLOOD COUNT 8.4 K/UL (4.8-10.8)
[2017-04-29 06:39] LABS: ALANINE AMINOTRANSFERASE 14 U/L (3-41); ALBUMIN/GLOBULIN RATIO 1.2 (1.0-2.7); ANION GAP 10 (5-15); ASPARTATE AMINO TRANSFERASE 36 U/L (5-40); CALCIUM 9.4 mg/dL (8.6-10.2); CARBON DIOXIDE 28 mEQ/L (20-30); CHLORIDE 99 mEQ/L (98-107); CHOLESTEROL 157 mg/dL (< 200); CREATININE 2.2 mg/dL (0.7-1.2); POTASSIUM 4.3 mEQ/L (3.4-4.9); SODIUM 137 mEQ/L (135-145); TOTAL PROTEIN 6.3 g/dL (6.6-8.7); URIC ACID 8.3 mg/dL (3.0-7.5)
[2017-04-29 06:40] LABS: CHOLESTEROL/HDL RATIO 2.3 (3.3-4.4); CRP QUANT 0.4 mg/dL (< 0.5); HEMOLYSIS 7; LDL CHOLESTEROL CALC 77 mg/dL (60-99)
[2017-04-29] MEDS: Depakote 500mg tab ORAL SCH ×2 (09:05→21:22)
[2017-04-29] MEDS: Heparin 5000 units/ml inj SUBQ SCH ×2 (09:06→21:23)
--- NOTE | 2017-04-29 12:09 | Consultation ---
Consult Note Consult Note asked to eval for high Cr 86yom with known seizures on keppra BIBEMS with witnessed tonic clonic seizure Given IM versed and cessation of seizure Was in chair, no trauma Last seizure one month prior HPI otherwise limited as patient post-ictal and accompanied health care worker is not very knowledgeable about patient Past Medical History: HTN, seizures Hx Hypertension: Yes Hx Diabetes: Yes examined- data reviewed . Assessment/Plan ? 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
--- NOTE | 2017-04-29 14:44 | Pulmonology Progress Note ---
Assessment/Plan Problems: (1) Acute encephalopathy (2) Uncontrolled seizures (3) ATN (acute tubular necrosis) (4) Hypertension Assessment/Plan mental status improved bp controlled f/u renal function neuro evaluation appreciated pt/ot dc planning when with Neuro f/u EEG result Subjective ROS Limited/Unobtainable: No Constitutional: Reports: no symptoms HEENT: Repors: no symptoms Respiratory: Reports: no symptoms Cardiovascular: Reports: no symptoms Allergies: Coded Allergies: No Known Allergies (Unverified , 04/27/17) Objective Last 24 Hour Vital Signs Date Time Temp Pulse Resp B/P (MAP) Pulse Ox O2 Delivery O2 Flow Rate FiO2 04/29/17 12:00 98.1 72 19 112/58 98 Room Air 04/29/17 08:00 99.2 79 19 120/46 98 Room Air 04/29/17 04:00 98.2 72 18 118/59 96 Room Air 04/29/17 00:00 98.7 73 18 131/63 98 Room Air 04/28/17 21:50 98.7 73 18 117/72 95 Room Air 04/28/17 20:00 97.9 70 18 104/52 96 Room Air 04/28/17 16:00 97.9 69 20 113/56 98 Room Air 04/28/17 16:00 70 Intake and Output 04/29/17 04/30/17 19:00 07:00 Intake Total 480 ml Output Total 350 ml Balance 130 ml Intake Oral 480 ml Output Urine Total 350 ml # Voids 2 General Appearance: WD/WN HEENT: normocephalic, atraumatic Respiratory/Chest: chest wall non-tender, lungs clear Cardiovascular: normal peripheral pulses, normal rate Abdomen: normal bowel sounds, soft, non tender Genitourinary: normal external genitalia Skin: no rash Neurologic/Psychiatric: safety companion II-XII grossly normal Laboratory Tests 04/28/17 23:43: Urine Color Yellow, Urine Appearance Clear, Urine pH 6, Urine Specific [place] 1.010, Urine Protein Negative, Urine Glucose (UA) Negative, Urine Ketones Negative, Urine Occult Blood Negative, Urine Nitrite Negative, Urine Bilirubin Negative, Urine Urobilinogen Normal, Urine Leukocyte Esterase Negative, Urine RBC 0, Urine WBC 0, Urine Squamous Epithelial Cells None, Urine Bacteria None, Urine Random Sodium 34, Urine Opiates Screen Negative, Urine Barbiturates Screen Negative, Phencyclidine (PCP) Screen Negative, Urine Amphetamines Screen Negative, Urine Benzodiazepines Screen PositiveH, Urine Cocaine Screen Negative , Urine Marijuana (THC) Screen Negative 04/29/17 05:55: White Blood Count 8.4, Red Blood Count 3.93L, Hemoglobin 11.7L, Hematocrit 37.2L , Mean Corpuscular Volume 95, Mean Corpuscular Hemoglobin 29.8, Mean Corpuscular Hemoglobin Concent 31.4L, Red Cell Distribution Width 14.6, Platelet Count 174, Mean Platelet Volume 9.0, Neutrophils (%) (Auto) 66.5, Lymphocytes (%) (Auto) 19.6L, Monocytes (%) (Auto) 8.4, Eosinophils (%) (Auto) 4.2H, Basophils (%) (Auto) 1.3, Sodium Level 137, Potassium Level 4.3, Chloride Level 99, Carbon Dioxide Level 28, Anion Gap 10, Blood Urea Nitrogen 19, Creatinine 2.2H, Estimat Glomerular Filtration Rate , Glucose Level 85, Uric Acid 8.3H, Calcium Level 9.4, Phosphorus Level 3.0, Magnesium Level 2.0, Total Bilirubin 0.5, Gamma Glutamyl Transpeptidase 178H, Aspartate Amino Transf (AST/ SGOT) 36, Alanine Aminotransferase (ALT/SGPT) 14, Alkaline Phosphatase 116, C- Reactive Protein, Quantitative 0.4, Pro-B-Type Natriuretic Peptide 6958H, Total Protein 6.3L, Albumin 3.5, Globulin 2.8, Albumin/Globulin Ratio 1.2, Triglycerides Level 64, Cholesterol Level 157, LDL Cholesterol 77, HDL Cholesterol 67H, Cholesterol/HDL Ratio 2.3L, Thyroid Stimulating Hormone (TSH) 3.290 Current Medications Medications (Trade) Dose Ordered Sig/Fransisco Route PRN Reason Start Time Stop Time Status Last Admin Dose Admin Acetaminophen (Tylenol) 650 mg Q4H PRN ORAL T>100.5 04/29/17 01:15 05/27/17 21:14 Dextrose (Dextrose 50%) STAT PRN IV Hypoglycemia 04/29/17 21:15 05/27/17 21:14 Divalproex Sodium (Depakote) 500 mg EVERY 12 HOURS ORAL 04/29/17 09:00 05/28/17 17:59 04/29/17 09:05 Haloperidol Lactate (Haldol) 2 mg Q4H PRN IM Agitation 04/29/17 00:45 05/28/17 00:44 Heparin Sodium (Porcine) (Heparin 5000 units/ml) 5,000 units EVERY 12 HOURS SUBQ 04/29/17 09:00 05/28/17 08:59 04/29/17 09:06 Levetiracetam (Keppra) 250 mg Q12HR ORAL 04/29/17 09:00 05/28/17 08:59 04/29/17 09:04 Lorazepam (Ativan 2mg/ml 1ml) 2 mg Q1H PRN IV seizures 04/28/17 22:15 05/04/17 21:14 Morphine Sulfate (Morphine Sulfate) 1 mg Q4H PRN IVP PAIN 4-10 04/29/17 01:15 05/04/17 21:14 Ondansetron HCl (Zofran) 4 mg Q6H PRN IVP Nausea & Vomiting 04/29/17 03:15 05/27/17 21:14 Pantoprazole (Protonix) 40 mg DAILY ORAL 04/30/17 09:00 05/30/17 08:59 Polyethylene Glycol (Miralax) 17 gm HSPRN PRN ORAL Constipation 04/29/17 21:15 05/27/17 21:14 Sodium Chloride 1,000 ml @ 75 mls/hr [id number] IV 04/29/17 12:15 05/29/17 12:14 Zolpidem Tartrate (Ambien) 5 mg HSPRN PRN ORAL Insomnia 04/28/17 22:10 05/05/17 22:09 ALEC MICHAEL Apr 29, 2017 14:44
[2017-04-29] MEDS ORDERED: KEPPRA500 MG ORAL (14:46)
[2017-04-29] MEDS ORDERED: DIVALPROEX SOD500 MG ORAL (14:46)
--- NOTE | 2017-04-29 14:54 | Diagnostic Imaging Report ---
Indication: Abnormal renal function tests Technique: Grayscale and duplex images of the kidneys, retroperitoneum, and bladder were obtained. Comparison:None Findings: Right kidney measures 9.2 cm in length. Left kidney measures 9.3 cm in length. Both kidneys demonstrate normal echogenicity. No hydronephrosis. No focal abnormality. Normal inferior vena cava. Bladder demonstrates equivocal wall thickening and bladder wall trabeculation. Incidental noted is a mixed echogenicity mostly hypoechoic 2.9 cm mass within the left hepatic lobe. Impression: Negative for hydronephrosis Equivocal mild bladder wall thickening and trabeculation, could indicate chronic bladder obstruction 2.9 cm left lobe liver mass. Further evaluation with contrast CT or MRI should be considered. Findings discussed by phone with Dr. Vang at the time of interpretation
--- NOTE | 2017-04-29 15:37 | Cardiology Report ---
APPROVED REPORT EXAM: Two-dimensional and M-mode echocardiogram with Doppler and color Doppler. INDICATION CHF M-Mode DIMENSIONS IVSd1.3 (0.7-1.1cm)Left Atrium (MM)3.6 (1.6-4.0cm) LVDd4.6 (3.5-5.6cm)Aortic Root3.5 (2.0-3.7cm) PWd0.8 (0.7-1.1cm)Aortic Cusp Exc.1.7 (1.5-2.0cm) LVDs2.7 (2.5-4.0cm) PWs1.8 cm Normal left ventricular chamber size. Hypokinesis of distal segments. Akinesis of apical and anterior wall. All other remaining segments have normal wall motion. Left ventricular ejection fraction estimated to be 50-55 %. Mild left ventricular hypertrophy by 2-D. No evidence of pericardial effusion. All other cardiac chamber sizes are within normal limits. Focal aortic valve sclerosis with adequate cusp excursion. Thickened mitral valve leaflets with normal excursion. Mitral annulus and aortic root calcification. Pulmonic valve not well visualized. Normal tricuspid valve structure. IVC at normal size with physiologic collapse. A color flow and spectral Doppler study was performed and revealed: Mild aortic regurgitation. Trace mitral regurgitation. Mitral diastolic velocities suggest reduced left ventricular relaxation c/w mild LV diastolic dysfunction (Grade I). Trace to mild tricuspid regurgitation. Tricuspid systolic velocities suggests peak right ventricular systolic pressure of 29 mmHg.
[2017-04-29] MEDS ORDERED: Miralax 17gm pkt ORAL PRN (21:15)
[2017-04-29] MEDS: Docusate 100mg cap ORAL SCH (21:21)
--- NOTE | 2017-04-29 23:10 | General Progress Note ---
Assessment/Plan Status: stable Assessment/Plan encephalopathy improved, cognitive impairment DMV was contacted and will sign the form Subjective Neurologic/Psychiatric: Reports: depressed Allergies: Coded Allergies: No Known Allergies (Unverified , 04/27/17) Subjective the pt is early dementia. 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 Objective Last 24 Hour Vital Signs Date Time Temp Pulse Resp B/P (MAP) Pulse Ox O2 Delivery O2 Flow Rate FiO2 04/29/17 20:20 98.9 74 18 142/67 98 Room Air 04/29/17 16:00 98.3 69 18 124/55 98 Room Air 04/29/17 12:00 98.1 72 19 112/58 98 Room Air 04/29/17 08:00 99.2 79 19 120/46 98 Room Air 04/29/17 04:00 98.2 72 18 118/59 96 Room Air 04/29/17 00:00 98.7 73 18 131/63 98 Room Air Intake and Output 04/29/17 04/30/17 19:00 07:00 Intake Total 1005 ml Output Total 450 ml 100 ml Balance 555 ml -100 ml Intake Oral 780 ml IV Total 225 ml Output Urine Total 450 ml 100 ml # Voids 4 # Bowel Movements 1 Laboratory Tests 04/28/17 23:43: Urine Color Yellow, Urine Appearance Clear, Urine pH 6, Urine Specific [place] 1.010, Urine Protein Negative, Urine Glucose (UA) Negative, Urine Ketones Negative, Urine Occult Blood Negative, Urine Nitrite Negative, Urine Bilirubin Negative, Urine Urobilinogen Normal, Urine Leukocyte Esterase Negative, Urine RBC 0, Urine WBC 0, Urine Squamous Epithelial Cells None, Urine Bacteria None, Urine Random Sodium 34, Urine Opiates Screen Negative, Urine Barbiturates Screen Negative, Phencyclidine (PCP) Screen Negative, Urine Amphetamines Screen Negative, Urine Benzodiazepines Screen PositiveH, Urine Cocaine Screen Negative , Urine Marijuana (THC) Screen Negative 04/29/17 05:55: White Blood Count 8.4, Red Blood Count 3.93L, Hemoglobin 11.7L, Hematocrit 37.2L , Mean Corpuscular Volume 95, Mean Corpuscular Hemoglobin 29.8, Mean Corpuscular Hemoglobin Concent 31.4L, Red Cell Distribution Width 14.6, Platelet Count 174, Mean Platelet Volume 9.0, Neutrophils (%) (Auto) 66.5, Lymphocytes (%) (Auto) 19.6L, Monocytes (%) (Auto) 8.4, Eosinophils (%) (Auto) 4.2H, Basophils (%) (Auto) 1.3, Sodium Level 137, Potassium Level 4.3, Chloride Level 99, Carbon Dioxide Level 28, Anion Gap 10, Blood Urea Nitrogen 19, Creatinine 2.2H, Estimat Glomerular Filtration Rate , Glucose Level 85, Uric Acid 8.3H, Calcium Level 9.4, Phosphorus Level 3.0, Magnesium Level 2.0, Total Bilirubin 0.5, Gamma Glutamyl Transpeptidase 178H, Aspartate Amino Transf (AST/ SGOT) 36, Alanine Aminotransferase (ALT/SGPT) 14, Alkaline Phosphatase 116, C- Reactive Protein, Quantitative 0.4, Pro-B-Type Natriuretic Peptide 6958H, Total Protein 6.3L, Albumin 3.5, Globulin 2.8, Albumin/Globulin Ratio 1.2, Triglycerides Level 64, Cholesterol Level 157, LDL Cholesterol 77, HDL Cholesterol 67H, Cholesterol/HDL Ratio 2.3L, Alpha Fetoprotein [Pending], Thyroid Stimulating Hormone (TSH) 3.290 Height (Feet): 5 Height (Inches): 3.00 Weight (Pounds): 119 General Appearance: no apparent distress, alert Neurologic: alert, oriented x 3, responsive, depressed affect Gail Albarran M.D. Apr 29, 2017 23:10
[2017-04-30 04:00] VITALS: BP 116/65
[2017-04-30 07:25] LABS: MEAN CORPUSCULAR HEMOGLOBIN 29.4 PG (27.0-31.0); MEAN CORPUSCULAR VOLUME 95 FL (80-99); PLATELET COUNT 183 K/UL (150-450); RED BLOOD COUNT 4.24 M/UL (4.70-6.10); RED CELL DISTRIBUTION WIDTH 14.7 % (11.6-14.8); WHITE BLOOD COUNT 7.3 K/UL (4.8-10.8)
[2017-04-30 07:47] LABS: PROTHROMBIN TIME 10.8 SEC (9.30-11.50)
[2017-04-30 08:00] VITALS: BP 146/69
[2017-04-30 08:01] LABS: FERRITIN 30 ng/mL (10-230)
[2017-04-30 08:03] LABS: ALANINE AMINOTRANSFERASE 16 U/L (3-41); ANION GAP 13 (5-15); ASPARTATE AMINO TRANSFERASE 38 U/L (5-40); CALCIUM 9.4 mg/dL (8.6-10.2); CARBON DIOXIDE 26 mEQ/L (20-30); CHLORIDE 99 mEQ/L (98-107); CREATININE 1.9 mg/dL (0.7-1.2); CRP QUANT 0.4 mg/dL (< 0.5); HEMOLYSIS 1; PHOSPHORUS 3.1 mg/dL (2.5-4.8); POTASSIUM 4.3 mEQ/L (3.4-4.9); SODIUM 138 mEQ/L (135-145); TOTAL PROTEIN 6.7 g/dL (6.6-8.7); URIC ACID 6.9 mg/dL (3.0-7.5)
[2017-04-30 08:06] LABS: LACTATE DEHYDROGENASE 217 U/L (135-230)
[2017-04-30 08:13] LABS: HEMOGLOBIN A1C 4.6 % (< 6.0)
[2017-04-30 08:33] LABS: HEMOLYSIS 11; IRON 33 ug/dL (59-158); TOTAL IRON BINDING CAPACITY 317 ug/dL (250-400)
[2017-04-30 08:35] LABS: PATH BLOOD SMEAR/OMC SEND TO PATHOLOGIST; RETICULOCYTE COUNT 1.1 % (0.0-2.0)
[2017-04-30] MEDS: Docusate 100mg cap ORAL SCH (08:44)
[2017-04-30] MEDS: Depakote 500mg tab ORAL SCH (08:45)
[2017-04-30] MEDS: Heparin 5000 units/ml inj SUBQ SCH (08:47)
--- NOTE | 2017-04-30 08:59 | Diagnostic Imaging Report ---
Indication: Abdominal pain Technique: Spiral acquisitions obtained through the abdomen and pelvis. Patient given oral contrast. No IV contrast utilized, per referring physician request.. Multiplanar reconstructions were generated. Total dose length product 104 mGycm. CTDIvol(s) 10 mGy. Dose reduction achieved using automated exposure control Comparison: Reference made to renal ultrasound earlier the same day. Findings: The rectum is mildly distended mostly by gas. There is colonic diverticulosis. No evidence of diverticulitis. The appendix is normal. Contrast is seen throughout the entirety of the small bowel and well into the colon. No small bowel distention or small bowel wall thickening. There is wall thickening of the distal esophagus. There is equivocal wall thickening of the duodenal bulb. The infrarenal esophagus demonstrates saccular ectasia, not quite aneurysmal. Lack of IV contrast limits assessment of the solid organs. The liver demonstrates equivocal surface nodularity. It demonstrates a subtle focus of low attenuation in the left lobe, corresponding to the abnormality described as an incidental finding on recent renal sonography.. There is a small gallstone. No gallbladder wall thickening. Bile ducts are unremarkable. The pancreas is unremarkable. Spleen demonstrates granulomatous calcifications. The adrenals are unremarkable. There is bilateral perinephric fat stranding. There is a 1 cm cyst in the interpolar region of the right kidney. No renal or ureteral calculi, hydronephrosis, hydroureter. The bladder is thickwalled. The prostate is mildly enlarged. There are is surgical hardware seen reducing old healed left hip intertrochanteric fracture. There is a healed fracture deformity of the right inferior pubic ramus. There are degenerative changes of the lumbar spine. The lung bases demonstrate bilateral posterior dependent atelectatic changes. Impression: Subtle left lobe liver mass, corresponding to the abnormality described on recent ultrasound. Findings concerning for neoplasm. Equivocal hepatic surface nodularity, early cirrhotic changes not excludable Equivocal wall thickening of the duodenal bulb, duodenum is or peptic ulcer disease a possibility. Correlate with clinical findings Small hiatal hernia. Distal esophageal wall thickening, could indicate esophagitis, reflux or otherwise Bladder wall thickening. Could be on the basis of cystitis, but findings of trabeculation on recent ultrasound are more suggestive of chronic bladder outlet obstruction Saccular ectasia of the distal bowel aorta, which is not quite aneurysmal Cholelithiasis Colonic diverticulosis Granulomatous calcifications in the spleen Nonspecific bilateral perinephric fat stranding 1 cm right renal cyst Posttraumatic and postsurgical changes of the pelvis and left hip, as described Dependent posterior pulmonary atelectatic changes Degenerative spondylosis incidentally noted This agrees with the preliminary interpretation provided overnight by Dr. Payne The CT scanner at [facility] is accredited by the [employer] and the scans are performed using protocols designed to limit radiation exposure to as low as reasonably achievable to attain images of sufficient resolution adequate for diagnostic evaluation.
[2017-04-30 09:00] LABS: ANISOCYTOSIS 1+; BAND NEUTROPHILS % (MANUAL) 0 % (0-8); BASOPHILS % (MANUAL) 1 % (0-2); BLISTER CELL 1+; EOSINOPHILS % (MANUAL) 4 % (0-3); HYPOCHROMASIA 1+; LYMPHOCYTES % (MANUAL) 31 % (20-45); NEUTROPHILS % (MANUAL) 62 % (45-75); PLATELET ESTIMATE ADEQUATE; PLATELET MORPHOLOGY NORMAL; TOTAL CELLS COUNTED 100
[2017-04-30 09:04] LABS: ERYTHROCYTE SEDIMENTATION RATE 15 MM/HR (0-30)
--- NOTE | 2017-04-30 11:38 | Diagnostic Imaging Report ---
Indication: COUGH Technique: One view of the chest Comparison: none Findings: Contrast is seen in the colon from recent CT scan. The lungs and pleural spaces are clear. Heart size is normal Impression: No acute process
--- NOTE | 2017-04-30 11:39 | General Progress Note ---
Assessment/Plan Status: unchanged Status Narrative Cr 1.9 not rising Assessment/Plan status: ? 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 Further evaluation with contrast CT or MRI should be considered. Subjective ROS Limited/Unobtainable: No Constitutional: Reports: malaise Allergies: Coded Allergies: No Known Allergies (Unverified , 04/27/17) Objective Last 24 Hour Vital Signs Date Time Temp Pulse Resp B/P (MAP) Pulse Ox O2 Delivery O2 Flow Rate FiO2 04/30/17 08:00 97.0 72 19 146/69 97 Room Air 04/30/17 04:00 98.0 65 16 116/65 97 Room Air 04/29/17 23:50 98.3 77 18 146/68 97 Room Air 04/29/17 20:20 98.9 74 18 142/67 98 Room Air 04/29/17 16:00 98.3 69 18 124/55 98 Room Air 04/29/17 12:00 98.1 72 19 112/58 98 Room Air Intake and Output 04/30/17 05/01/17 19:00 07:00 # Voids 1 Laboratory Tests 04/30/17 05:30: White Blood Count 7.3, Red Blood Count 4.24L, Hemoglobin 12.5L, Hematocrit 40.1L , Mean Corpuscular Volume 95, Mean Corpuscular Hemoglobin 29.4, Mean Corpuscular Hemoglobin Concent 31.0L, Red Cell Distribution Width 14.7, Platelet Count 183, Mean Platelet Volume 9.0, Neutrophils (%) (Auto) , Lymphocytes (%) (Auto) , Monocytes (%) (Auto) , Eosinophils (%) (Auto) , Basophils (%) (Auto) , Differential Total Cells Counted 100, Neutrophils % ( Manual) 62, Lymphocytes % (Manual) 31, Monocytes % (Manual) 2, Eosinophils % ( Manual) 4H, Basophils % (Manual) 1, Band Neutrophils 0, Platelet Estimate Adequate, Platelet Morphology Normal, Hypochromasia 1+, Anisocytosis 1+, Blister Cells 1+, Erythrocyte Sedimentation Rate 15, Reticulocyte Count 1.1, Prothrombin Time 10.8, Prothromb Time International Ratio 1.0, Activated Partial Thromboplast Time 34H, Sodium Level 138, Potassium Level 4.3, Chloride Level 99, Carbon Dioxide Level 26, Anion Gap 13, Blood Urea Nitrogen 17, Creatinine 1.9H, Estimat Glomerular Filtration Rate , Glucose Level 83, Hemoglobin A1c 4.6, Uric Acid 6.9, Calcium Level 9.4, Phosphorus Level 3.1, Magnesium Level 2.0, Iron Level 33L, Total Iron Binding Capacity 317, Percent Iron Saturation 10L, Unsaturated Iron Binding 284, Ferritin 30, Total Bilirubin 0.6, Gamma Glutamyl Transpeptidase 205H, Aspartate Amino Transf (AST/SGOT) 38, Alanine Aminotransferase (ALT/SGPT) 16, Alkaline Phosphatase 134H, Lactate Dehydrogenase 217, Total Creatine Kinase 71, C-Reactive Protein, Quantitative 0.4, Pro-B-Type Natriuretic Peptide 9862H, Total Protein 6.7, Albumin 3.5, Globulin 3.2, Albumin/Globulin Ratio 1.0, Carcinoembryonic Antigen 2.1, Vitamin B12 Level 597, Folate [Pending] Height (Feet): 5 Height (Inches): 3.00 Weight (Pounds): 119 General Appearance: no apparent distress Objective no change ANTONIO DOE Apr 30, 2017 11:39
--- NOTE | 2017-04-30 11:51 | GI Initial Consult Note ---
Ryanne Wan NRivera 04/30/17 1150: History of Present Illness General Date patient seen: Apr 30, 2017 Time patient seen: 11:42 Reason for Hospitalization: Seizure Referring physician: ALEC YANG Reason for Consultation: ABNORMAL LFTs Present Illness HPI 86yom with known seizures on keppra BIBEMS with witnessed tonic clonic seizure Given IM versed and cessation of seizure Was in chair, no trauma Last seizure one month prior HPI otherwise limited as patient post-ictal and accompanied health care worker is not very knowledgeable about patient GI Consult. HPI as noted above. GI consulted for thickened duodenal bulb and esophageal wall thickening as shown on recent CT. ROS limited, pt OOB on chair tolerating food. Son @ bedside. Patient presents today with liver disease; mass on CT, elevated AFP, elevated GGT. Also noted to be iron deficient. Unknown history of endoscopic procedures. Home Meds Active Scripts Levetiracetam (Keppra) 250 Mg Tablet, 250 MG ORAL Q12HR for 30 Days, TAB Prov:ALEC MICHAEL 04/29/17 Divalproex Sodium (DIVALPROEX SODIUM) 500 Mg Tablet.dr, 500 MG ORAL EVERY 12 HOURS for 30 Days, TAB Prov:ALEC MICHAEL 04/29/17 Reported Medications Valsartan (Diovan) 160 Mg Tablet, 320 MG ORAL DAILY, TAB 04/27/17 Levetiracetam* (LEVETIRACETAM*) 500 Mg Tablet, 250 MG ORAL, #60 TAB 0 Refills 04/27/17 Med list reviewed/reconciled: Yes Allergies: Coded Allergies: No Known Allergies (Unverified , 04/27/17) Patient History Limited by: medical condition History Provided By: Family Member, Medical Record PMH Narrative Past Medical History: HTN, seizures Past Surgical History: unable to obtain Pertinent Family History: unable to obtain Social History: Denies: smoking, alcohol use, drug use Immunizations: UTD Reviewed Nursing Documentation: PMH: Agreed, PSxH: Agreed Nursing Documentation-PMH Hx Hypertension: Yes Hx Diabetes: Yes Social History: Denies: smoking, alcohol use, drug use, other Review of Systems All Other Systems: negative except mentioned in HPI Physical Exam Vital Signs Date Time Temp Pulse Resp B/P (MAP) Pulse Ox O2 Delivery O2 Flow Rate FiO2 04/27/17 17:58 99.1 120 16 128/54 98 Nasal Cannula 3.0 Sp02 EP Interpretation: reviewed Labs Laboratory Tests Test 04/30/17 05:30 White Blood Count 7.3 K/UL (4.8-10.8) Red Blood Count 4.24 M/UL (4.70-6.10) L Hemoglobin 12.5 G/DL (14.2-18.0) L Hematocrit 40.1 % (42.0-52.0) L Mean Corpuscular Volume 95 FL (80-99) Mean Corpuscular Hemoglobin 29.4 PG (27.0-31.0) Mean Corpuscular Hemoglobin Concent 31.0 G/DL (32.0-36.0) L Red Cell Distribution Width 14.7 % (11.6-14.8) Platelet Count 183 K/UL (150-450) Mean Platelet Volume 9.0 FL (6.5-10.1) Neutrophils (%) (Auto) % (45.0-75.0) Lymphocytes (%) (Auto) % (20.0-45.0) Monocytes (%) (Auto) % (1.0-10.0) Eosinophils (%) (Auto) % (0.0-3.0) Basophils (%) (Auto) % (0.0-2.0) Differential Total Cells Counted 100 Neutrophils % (Manual) 62 % (45-75) Lymphocytes % (Manual) 31 % (20-45) Monocytes % (Manual) 2 % (1-10) Eosinophils % (Manual) 4 % (0-3) H Basophils % (Manual) 1 % (0-2) Band Neutrophils 0 % (0-8) Platelet Estimate Adequate Platelet Morphology Normal Hypochromasia 1+ Anisocytosis 1+ Blister Cells 1+ Erythrocyte Sedimentation Rate 15 MM/HR (0-30) Reticulocyte Count 1.1 % (0.0-2.0) Prothrombin Time 10.8 SEC (9.30-11.50) Prothromb Time International Ratio 1.0 (0.9-1.1) Activated Partial Thromboplast Time 34 SEC (23-33) H Sodium Level 138 mEQ/L (135-145) Potassium Level 4.3 mEQ/L (3.4-4.9) Chloride Level 99 mEQ/L (98-107) Carbon Dioxide Level 26 mEQ/L (20-30) Anion Gap 13 (5-15) Blood Urea Nitrogen 17 mg/dL (7-23) Creatinine 1.9 mg/dL (0.7-1.2) H Estimat Glomerular Filtration Rate mL/min (>60) Glucose Level 83 mg/dL (74-106) Hemoglobin A1c 4.6 % (< 6.0) Uric Acid 6.9 mg/dL (3.0-7.5) Calcium Level 9.4 mg/dL (8.6-10.2) Phosphorus Level 3.1 mg/dL (2.5-4.8) Magnesium Level 2.0 mg/dL (1.7-2.5) Iron Level 33 ug/dL (59-158) L Total Iron Binding Capacity 317 ug/dL (250-400) Percent Iron Saturation 10 % (15-50) L Unsaturated Iron Binding 284 ug/dL (112-346) Ferritin 30 ng/mL (10-230) Total Bilirubin 0.6 mg/dL (0.0-1.2) Gamma Glutamyl Transpeptidase 205 U/L (8-61) H Aspartate Amino Transf (AST/SGOT) 38 U/L (5-40) Alanine Aminotransferase (ALT/SGPT) 16 U/L (3-41) Alkaline Phosphatase 134 U/L (40-129) H Lactate Dehydrogenase 217 U/L (135-230) Total Creatine Kinase 71 U/L (38-174) C-Reactive Protein, Quantitative 0.4 mg/dL (< 0.5) Pro-B-Type Natriuretic Peptide 9862 pg/mL (0-450) H Total Protein 6.7 g/dL (6.6-8.7) Albumin 3.5 g/dL (3.5-5.2) Globulin 3.2 g/dL Albumin/Globulin Ratio 1.0 (1.0-2.7) Carcinoembryonic Antigen 2.1 ng/mL Vitamin B12 Level 597 pg/mL (211-946) Folate Pending General Appearance: well appearing, no apparent distress, alert, thin Head: normocephalic EENT: normal ENT inspection Neck: supple Respiratory: normal breath sounds, no respiratory distress Cardiovascular: normal rate Gastrointestinal: normal inspection, non tender, soft Neurologic: alert Skin: normal color, no rash, warm/dry, palpation normal Lymphatic: normal inspection, no adenopathy Current Medications Current Medications Medications (Trade) Dose Ordered Sig/Fransisco Route PRN Reason Start Time Stop Time Status Last Admin Dose Admin Acetaminophen (Tylenol) 650 mg Q4H PRN ORAL T>100.5 04/29/17 01:15 05/27/17 21:14 Dextrose (Dextrose 50%) STAT PRN IV Hypoglycemia 04/29/17 21:15 05/27/17 21:14 Divalproex Sodium (Depakote) 500 mg EVERY 12 HOURS ORAL 04/29/17 09:00 05/28/17 17:59 04/30/17 08:45 Docusate Sodium (Colace) 100 mg TWICE A DAY ORAL 04/29/17 21:00 05/29/17 20:59 04/30/17 08:44 Haloperidol Lactate (Haldol) 2 mg Q4H PRN IM Agitation 04/29/17 00:45 05/28/17 00:44 Heparin Sodium (Porcine) (Heparin 5000 units/ml) 5,000 units EVERY 12 HOURS SUBQ 04/29/17 09:00 05/28/17 08:59 04/30/17 08:47 Levetiracetam (Keppra) 250 mg Q12HR ORAL 04/29/17 09:00 05/28/17 08:59 04/30/17 08:44 Lorazepam (Ativan 2mg/ml 1ml) 2 mg Q1H PRN IV seizures 04/28/17 22:15 05/04/17 21:14 Morphine Sulfate (Morphine Sulfate) 1 mg Q4H PRN IVP PAIN 4-10 04/29/17 01:15 05/04/17 21:14 Ondansetron HCl (Zofran) 4 mg Q6H PRN IVP Nausea & Vomiting 04/29/17 03:15 05/27/17 21:14 Pantoprazole (Protonix) 40 mg DAILY ORAL 04/30/17 09:00 05/30/17 08:59 04/30/17 08:44 Polyethylene Glycol (Miralax) 17 gm HSPRN PRN ORAL Constipation 04/29/17 21:15 05/27/17 21:14 Sodium Chloride 1,000 ml @ 75 mls/hr [id number] IV 04/29/17 12:15 05/29/17 12:14 04/29/17 15:24 Zolpidem Tartrate (Ambien) 5 mg HSPRN PRN ORAL Insomnia 04/28/17 22:10 05/05/17 22:09 04/29/17 21:21 GI: Plan Problems: (1) Iron deficiency (2) Liver mass (3) Esophageal thickening (4) Elevated AFP Plan Son of the patient refused to have any further work up performed given his advanced age - we recommended EGD to evaluate esophageal and duodenal wall thickening >> refused by family - liver biopsy given mass on recent CT and AFP elevation >> refused by family iron deficiency >> FeSO4 regular diet, tolerating cont ppi PO bowel regime fu labs clear for DC from GI standpoint Discussed with Dr. Dowell. Thank you for referring this patient, we will follow. VANESSA DOWELL 05/07/17 1438: History of Present Illness General Reason for Hospitalization: Seizure Present Illness Home Meds Active Scripts Levetiracetam (Keppra) 250 Mg Tablet, 250 MG ORAL Q12HR for 30 Days, TAB Prov:ALEC MICHAEL 04/29/17 Divalproex Sodium (DIVALPROEX SODIUM) 500 Mg Tablet.dr, 500 MG ORAL EVERY 12 HOURS for 30 Days, TAB Prov:ZARRABIMIRALI 04/29/17 Reported Medications Valsartan (Diovan) 160 Mg Tablet, 320 MG ORAL DAILY, TAB 04/27/17 Levetiracetam* (LEVETIRACETAM*) 500 Mg Tablet, 250 MG ORAL, #60 TAB 0 Refills 04/27/17 Allergies: Coded Allergies: No Known Allergies (Unverified , 04/27/17) GI: Plan Plan The patient was seen and examined at bedside and all new and available data was reviewed in the patients chart. I agree with the above findings, impression and plan. (Patient seen earlier today. Signature stamp does not reflect patient encounter time.). -Pinky Sharpe MDh Ravin Petersen Apr 30, 2017 11:50 VANESSA DOWELL May 07, 2017 14:38
--- NOTE | 2017-04-30 16:42 | Pulmonology Progress Note ---
Assessment/Plan Problems: (1) Acute encephalopathy (2) Uncontrolled seizures (3) ATN (acute tubular necrosis) (4) Elevated AFP (5) Liver mass (6) Hypertension Assessment/Plan mental status improved bp controlled f/u renal function neuro evaluation appreciated the combination of liver mass and increased alpha feto protein confirms Liver cell cancer. The options discussed with the pts son, they opted for palliative care. f/u EEG result Subjective Allergies: Coded Allergies: No Known Allergies (Unverified , 04/27/17) Objective Last 24 Hour Vital Signs Date Time Temp Pulse Resp B/P (MAP) Pulse Ox O2 Delivery O2 Flow Rate FiO2 04/30/17 08:00 97.0 72 19 146/69 97 Room Air 04/30/17 04:00 98.0 65 16 116/65 97 Room Air 04/29/17 23:50 98.3 77 18 146/68 97 Room Air 04/29/17 20:20 98.9 74 18 142/67 98 Room Air Intake and Output 04/30/17 05/01/17 19:00 07:00 # Voids 2 # Bowel Movements 1 General Appearance: WD/WN HEENT: normocephalic, anicteric Respiratory/Chest: chest wall non-tender, lungs clear, normal breath sounds Cardiovascular: regular rhythm, no JVD Abdomen: normal bowel sounds, no organomegaly Extremities: no cyanosis, no clubbing Skin: no rash Laboratory Tests 04/30/17 05:30: White Blood Count 7.3, Red Blood Count 4.24L, Hemoglobin 12.5L, Hematocrit 40.1L , Mean Corpuscular Volume 95, Mean Corpuscular Hemoglobin 29.4, Mean Corpuscular Hemoglobin Concent 31.0L, Red Cell Distribution Width 14.7, Platelet Count 183, Mean Platelet Volume 9.0, Neutrophils (%) (Auto) , Lymphocytes (%) (Auto) , Monocytes (%) (Auto) , Eosinophils (%) (Auto) , Basophils (%) (Auto) , Differential Total Cells Counted 100, Neutrophils % ( Manual) 62, Lymphocytes % (Manual) 31, Monocytes % (Manual) 2, Eosinophils % ( Manual) 4H, Basophils % (Manual) 1, Band Neutrophils 0, Platelet Estimate Adequate, Platelet Morphology Normal, Hypochromasia 1+, Anisocytosis 1+, Blister Cells 1+, Erythrocyte Sedimentation Rate 15, Reticulocyte Count 1.1, Prothrombin Time 10.8, Prothromb Time International Ratio 1.0, Activated Partial Thromboplast Time 34H, Sodium Level 138, Potassium Level 4.3, Chloride Level 99, Carbon Dioxide Level 26, Anion Gap 13, Blood Urea Nitrogen 17, Creatinine 1.9H, Estimat Glomerular Filtration Rate , Glucose Level 83, Hemoglobin A1c 4.6, Uric Acid 6.9, Calcium Level 9.4, Phosphorus Level 3.1, Magnesium Level 2.0, Iron Level 33L, Total Iron Binding Capacity 317, Percent Iron Saturation 10L, Unsaturated Iron Binding 284, Ferritin 30, Total Bilirubin 0.6, Gamma Glutamyl Transpeptidase 205H, Aspartate Amino Transf (AST/SGOT) 38, Alanine Aminotransferase (ALT/SGPT) 16, Alkaline Phosphatase 134H, Lactate Dehydrogenase 217, Total Creatine Kinase 71, C-Reactive Protein, Quantitative 0.4, Pro-B-Type Natriuretic Peptide 9862H, Total Protein 6.7, Albumin 3.5, Globulin 3.2, Albumin/Globulin Ratio 1.0, Carcinoembryonic Antigen 2.1, Vitamin B12 Level 597, Folate [Pending] ALEC MICHAEL Apr 30, 2017 16:41
--- NOTE | 2017-04-30 18:10 | General Progress Note ---
Assessment/Plan Status: stable, progressing Assessment/Plan encephalopathy improved, cognitive impairment DMV was contacted and did sign the form Subjective Constitutional: Reports: malaise, weakness Neurologic/Psychiatric: Reports: anxiety, depressed Allergies: Coded Allergies: No Known Allergies (Unverified , 04/27/17) Subjective the pt is early dementia. has care connector. Objective Last 24 Hour Vital Signs Date Time Temp Pulse Resp B/P (MAP) Pulse Ox O2 Delivery O2 Flow Rate FiO2 04/30/17 08:00 97.0 72 19 146/69 97 Room Air 04/30/17 04:00 98.0 65 16 116/65 97 Room Air 04/29/17 23:50 98.3 77 18 146/68 97 Room Air 04/29/17 20:20 98.9 74 18 142/67 98 Room Air Intake and Output 04/30/17 05/01/17 19:00 07:00 # Voids 2 # Bowel Movements 1 Laboratory Tests 04/30/17 05:30: White Blood Count 7.3, Red Blood Count 4.24L, Hemoglobin 12.5L, Hematocrit 40.1L , Mean Corpuscular Volume 95, Mean Corpuscular Hemoglobin 29.4, Mean Corpuscular Hemoglobin Concent 31.0L, Red Cell Distribution Width 14.7, Platelet Count 183, Mean Platelet Volume 9.0, Neutrophils (%) (Auto) , Lymphocytes (%) (Auto) , Monocytes (%) (Auto) , Eosinophils (%) (Auto) , Basophils (%) (Auto) , Differential Total Cells Counted 100, Neutrophils % ( Manual) 62, Lymphocytes % (Manual) 31, Monocytes % (Manual) 2, Eosinophils % ( Manual) 4H, Basophils % (Manual) 1, Band Neutrophils 0, Platelet Estimate Adequate, Platelet Morphology Normal, Hypochromasia 1+, Anisocytosis 1+, Blister Cells 1+, Erythrocyte Sedimentation Rate 15, Reticulocyte Count 1.1, Prothrombin Time 10.8, Prothromb Time International Ratio 1.0, Activated Partial Thromboplast Time 34H, Sodium Level 138, Potassium Level 4.3, Chloride Level 99, Carbon Dioxide Level 26, Anion Gap 13, Blood Urea Nitrogen 17, Creatinine 1.9H, Estimat Glomerular Filtration Rate , Glucose Level 83, Hemoglobin A1c 4.6, Uric Acid 6.9, Calcium Level 9.4, Phosphorus Level 3.1, Magnesium Level 2.0, Iron Level 33L, Total Iron Binding Capacity 317, Percent Iron Saturation 10L, Unsaturated Iron Binding 284, Ferritin 30, Total Bilirubin 0.6, Gamma Glutamyl Transpeptidase 205H, Aspartate Amino Transf (AST/SGOT) 38, Alanine Aminotransferase (ALT/SGPT) 16, Alkaline Phosphatase 134H, Lactate Dehydrogenase 217, Total Creatine Kinase 71, C-Reactive Protein, Quantitative 0.4, Pro-B-Type Natriuretic Peptide 9862H, Total Protein 6.7, Albumin 3.5, Globulin 3.2, Albumin/Globulin Ratio 1.0, Carcinoembryonic Antigen 2.1, Vitamin B12 Level 597, Folate [Pending] Height (Feet): 5 Height (Inches): 3.00 Weight (Pounds): 119 General Appearance: no apparent distress, alert, overweight Neurologic: alert, oriented x 3, responsive, normal mood/affect Gail Albarran M.D. Apr 30, 2017 18:10
--- NOTE | 2017-04-30 18:15 | Electroencephalogram ---
DATE OF PROCEDURE: 04/30/2017 PROCEDURE PERFORMED: Electroencephalography. READING PHYSICIAN: Juan Pablo Menon M.D. REFERRING PHYSICIAN: Deangelo Vang M.D. History: This is an 86-year-old female with a chronic seizure disorder, now presenting with exacerbation of seizure activities. Medications: Treatment includes Depakote and Keppra as well as Haldol. Technique: EEG was done using 18 electrodes placed [id number], [id number] montages according to 10/20 [employer] System. Most wakeful portions of recording background consists of a low to medium voltage 6-8 cycles per second. Theta activity is with continuous higher voltage, intermittent x1-3 hertz, sharply contoured slow wave transients, predominantly right hemispheric with occasional triphasic transients, predominantly right side, at times spread to the left central area. There was no clinical evidence of paroxysmal activity. Photic stimulation from 3 to 33 hertz was done resulted in no significant changes. There were slightly elevated amplitudes over the right hemisphere noted. Impression: Abnormal electroencephalogram in the presence of intermittent epileptiform activity emanating from the right frontocentral parietal area, generalized slowing. Comment: Above abnormality indicates global cerebral dysfunction with epileptiform activity, which is emanating from the right hemisphere and implying underlying structural lesion. Risk of clinical seizure activity remains high. Juan Pablo Menon M.D. DR: ALEC JOB#: [id number] CC:
--- NOTE | 2017-05-01 10:24 | Discharge Summary ---
Discharge Summary Hospital Course Date of Admission Apr 27, 2017 at 18:41 Date of Discharge Apr 30, 2017 at 14:30 Admitting Diagnosis seizure HPI Sid Gray is a 86 year old male who was admitted on Apr 27, 2017 at 18: 41 for Seizure Hospital Course [id number] Discharge Discharge Disposition Patient was discharged to Home (01) Discharge Diagnoses: Carmen Urrutia NP May 01, 2017 10:24
[2017-05-01 13:25] LABS: OTHERS PATHOLOGIST COMMENT
--- NOTE | 2017-05-02 08:15 | Discharge Summary 2 SIG ---
DATE OF ADMISSION: 04/27/2017 DATE OF DISCHARGE: 04/30/2017 CONSULTANTS: 1. Juan Pablo Menon M.D. 2. Jose Ordoñez M.D. 3. Gail Albarran M.D. 4. Shlomo Long M.D. Brief Hospital Course: The patient is an 86-year-old male with known seizure disorder, on Keppra, and history of hypertension, was brought in by paramedics due to witnessed tonic-clonic seizure episode. He was given IM Versed by paramedics with cessation of seizure. He had the same seizure a month ago. On arrival to the ED, the patient was postictal. He was loaded on Keppra IV. There were no additional seizure episodes noted. 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 EKG was in sinus rhythm. He was admitted to telemetry for evaluation of seizures and he was placed on seizure precautions. The patient eventually became more alert, however, has cognitive impairment. He was agitated and was provided a sitter. He was given Ativan p.r.n. He was counseled that he is not allowed to drive. Toxicology panel revealed phenytoin level 0.8 and carbamazepine 2.0. The patient was previously on Keppra 500 mg b.i.d. and per the patient's report, neurologist had to reduce medications and he had been taking 250 mg for few months now. He had poor tolerance of higher dose Keppra and was having breakthrough seizures with a 250 mg b.i.d. He was started on a new anticonvulsant Depakote 250 mg b.i.d. He had an EEG done that showed abnormal EEG in the presence of intermittent epileptiform activity emanating from the right frontocentral parietal area with generalized slowing. Creatinine was elevated to 2.1. Renal ultrasound was negative for hydronephrosis, both kidneys with normal echogenicity, there was equivocal mild bladder wall thickening that could indicate chronic bladder obstruction and findings of a left lobe liver mass. He was given IV fluid. CKD due to hypertension and diabetes mellitus. He had liver findings and was recommended to undergo biopsy. AFP was 709. He had elevated AFP and elevated GGT.Family refused further workup. He was also noted to be iron deficient. Family refused further workup and the patient's family opted for palliative care. The patient was eventually discharged home with hospice. FINAL DIAGNOSES: 1. Acute encephalopathy. 2. Seizure disorder with acute exacerbation. 3. ATN. 4. 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 5. Liver mass highly suspicious for liver cell carcinoma. 6. Hypertension. 7. DM. 8. Iron deficiency anemia. DISPOSITION: The patient was discharged home under hospice. DISCHARGE MEDICATIONS: Refer to medication list. Deangelo Vang M.D. I have been assigned to dictate discharge summary on this account and I was not involved in the patient's management. Carmen Urrutia N.P. DR: REGINE JOB#: [id number] CC: VISH
--- NOTE | 2017-05-24 18:05 | Cardiology Report ---
APPROVED REPORT EKG Measurement Heart [id number] Sinus tachycardia Left axis deviation Lateral infarct, age undetermined Inferior-posterior infarct, age undetermined Abnormal ECG
== END 2017-04-30 14:30 | disposition hospice, home (50) | DRG 100 ==
LOC: EDBD 17:52 → EDUNIT# 17:52 → EMR 18:40 → 2E 18:41 → EDBEDREQ 20:57 → 3E 04-28 21:50
DX: G40.409 Other generalized epilepsy and epileptic syndromes, not intractable, without status epilepticus (principal); N17.0 Acute kidney failure with tubular necrosis; G93.40 Encephalopathy, unspecified; I12.9 Hypertensive chronic kidney disease with stage 1 through stage 4 chronic kidney disease, or unspecified chronic kidney disease; E11.22 Type 2 diabetes mellitus with diabetic chronic kidney disease; N18.9 Chronic kidney disease, unspecified; D50.9 Iron deficiency anemia, unspecified; R16.0 Hepatomegaly, not elsewhere classified
CPT/HCPCS: 36415; 70450; 71010; 74176; 76775; 80053; 80061; 80156; 80185; 80299; 80300; 80329; 81001; 82105; 82378; 82550; 82553; 82607; 82728; 82746; 82977; 83036; 83540; 83550; 83615; 83735; 83880; 84100; 84300; 84443; 84484; 84550; 85007; 85025; 85044; 85060; 85610; 85651; 85730; 86140; 93005; 93306; 95819; 99285